=== PATIENT | female | born 1935 | race Caucasian/White ===

== ENCOUNTER → 2017-10-19 | Emergency (ER) | payer OTHER ==
[~2017-10-19] VITALS: Ht 152.4 cm; Wt 70.3 kg
[~2017-10-19] MED LIST: CLONAZEPAM0.5 MG; FUROSEMIDE20 MG PO; LEVAQUIN750 MG PO; POM (MEDICAMENTO EN PISO) PO; PROTONIX40 MG PO; SUCRALFATE1 GM/10 ML PO; TESSALON PERLE100 M1 PO; Xopenex 1.25 MG/3 ML SOLUTION IH; ZOLPIDEM TARTRA10 MG PO
== END | disposition designated cancer center or children's hospital (05) ==
LOC: ER 14:26
DX: S42.291A Other displaced fracture of upper end of right humerus, initial encounter for closed fracture (principal); I60.8 Other nontraumatic subarachnoid hemorrhage; W18.09XA Striking against other object with subsequent fall, initial encounter; Y93.89 Activity, other specified; Y92.038 Other place in apartment as the place of occurrence of the external cause; Y99.8 Other external cause status

== ENCOUNTER → 2017-10-22 | Outpatient (CLI) | payer OTHER | END | disposition home or self-care (01) | LOC: RAD 10:27 | DX: S42.354A Nondisplaced comminuted fracture of shaft of humerus, right arm, initial encounter for closed fracture (principal) ==

== ENCOUNTER 2017-10-26 09:54 | Outpatient (CLI) | payer OTHER | END 2017-10-26 10:10 | disposition home or self-care (01) | LOC: LAB 09:54 | DX: E55.9 Vitamin D deficiency, unspecified (principal); M85.88 Other specified disorders of bone density and structure, other site; D64.89 Other specified anemias; E88.89 Other specified metabolic disorders; D68.8 Other specified coagulation defects; N39.0 Urinary tract infection, site not specified; A49.02 Methicillin resistant Staphylococcus aureus infection, unspecified site; E83.42 Hypomagnesemia; E11.9 Type 2 diabetes mellitus without complications ==

== ENCOUNTER 2017-10-26 12:10 | Outpatient (CLI) | payer OTHER | END 2017-10-26 15:39 | disposition home or self-care (01) | LOC: RAD 12:10 | DX: S42.354A Nondisplaced comminuted fracture of shaft of humerus, right arm, initial encounter for closed fracture (principal); S06.0X0A Concussion without loss of consciousness, initial encounter ==

== ENCOUNTER 2017-10-27 11:36 | Outpatient (CLI) | payer OTHER | END 2017-10-27 17:00 | disposition home or self-care (01) | LOC: RAD 11:36 | DX: Z76.89 Persons encountering health services in other specified circumstances (principal) ==

== ENCOUNTER → 2017-10-29 | Day surgery (SDC) | payer OTHER | END | disposition home or self-care (01) | LOC: CIR.AMB 09:00 | DX: S42.361A Displaced segmental fracture of shaft of humerus, right arm, initial encounter for closed fracture (principal); M75.121 Complete rotator cuff tear or rupture of right shoulder, not specified as traumatic; M19.011 Primary osteoarthritis, right shoulder ==

== ENCOUNTER → 2018-10-03 10:15 | Outpatient (CLI) | payer OTHER | END | disposition home or self-care (01) | LOC: LAB 10:15 | DX: D64.89 Other specified anemias (principal); E88.89 Other specified metabolic disorders; D68.8 Other specified coagulation defects; N39.0 Urinary tract infection, site not specified; Z22.322 Carrier or suspected carrier of Methicillin resistant Staphylococcus aureus; Z76.89 Persons encountering health services in other specified circumstances; I49.8 Other specified cardiac arrhythmias ==

== ENCOUNTER 2018-10-14 07:16 | Day surgery (SDC) | payer OTHER | END 2018-10-14 15:45 | disposition home or self-care (01) | LOC: CIR.AMB 07:16 | DX: M24.511 Contracture, right shoulder (principal); M19.011 Primary osteoarthritis, right shoulder; M75.51 Bursitis of right shoulder; M65.811 Other synovitis and tenosynovitis, right shoulder ==

== ENCOUNTER 2018-10-19 11:40 | Emergency (ER) | payer OTHER ==
[~2018-10-19] VITALS: Ht 162.6 cm; Wt 68.9 kg
== END 2018-10-19 16:21 | disposition home or self-care (01) ==
LOC: ER 11:40
DX: K29.60 Other gastritis without bleeding (principal); E86.0 Dehydration

== ENCOUNTER 2022-04-29 15:36 | Emergency (ER) | payer OTHER ==
[~2022-04-29] VITALS: Ht 162.6 cm; Wt 68.0 kg
[2022-04-29] MEDS ORDERED: ROSUVASTATIN CAL5 MG (15:45)
== END 2022-04-30 11:42 | disposition home or self-care (01) ==
LOC: ER 15:36
DX: K59.00 Constipation, unspecified (principal); K29.70 Gastritis, unspecified, without bleeding; E86.0 Dehydration